=== PATIENT | male | born 1985 | race Caucasian/White ===

== ENCOUNTER 2020-03-25 14:34 | Emergency (ER) | payer SELFPAY ==
[~2020-03-25] VITALS: Ht 175.3 cm; Wt 66.0 kg
[~2020-03-25 14:34] MED LIST: LORA1TAB PO; SERT50TA PO
[2020-03-25 16:35] VITALS: BP 138/85
[2020-03-25] MEDS ORDERED: MUPIROCIN 2 % TOPICAL CREAM 30GM TUBE. TP ONE (17:15)
[2020-03-25] MEDS ORDERED: KETOROLAC 30 MG/ML VIAL. IM ONE (17:15)
[2020-03-25] MEDS ORDERED: oxyCODONE/APAP 5/325 1 TAB TABLET PO ONE (17:15)
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
[2020-03-25] MEDS ORDERED: OXYC1TAB15 PO (18:08)
[2020-03-25] MEDS ORDERED: MUPI22OI2 TP (18:08)
== END 2020-03-25 18:31 | disposition home or self-care (01) ==
LOC: ER 14:34
DX: S61.432A Puncture wound without foreign body of left hand, initial encounter (principal); R20.2 Paresthesia of skin; F41.9 Anxiety disorder, unspecified; F17.200 Nicotine dependence, unspecified, uncomplicated; Y29.XXXA Contact with blunt object, undetermined intent, initial encounter; Y93.89 Activity, other specified; Y92.89 Other specified places as the place of occurrence of the external cause; Y99.8 Other external cause status
CPT/HCPCS: 73130; 96372; 99283; J1885

== ENCOUNTER 2021-01-21 08:30 | Emergency (ER) | payer OTHER ==
[~2021-01-21] VITALS: Ht 172.7 cm; Wt 70.0 kg
[~2021-01-21 08:30] MED LIST changes: +MUPI22OI2 TP; +OXYC1TAB15 PO
[2021-01-21] MEDS ORDERED: IV NORMAL SALINE 1000ML BAG 1,000 ML IV ONE (09:00)
[2021-01-21 09:35] LABS: BASO # 0.1 x10^3/uL (0.0-0.2); BASO % 1 % (0-3); EOS # 0.1 x10^3/uL (0.0-0.7); EOS % 1 % (0-3); HEMATOCRIT 44.4 % (39.0-53.0); HEMOGLOBIN 15.5 g/dL (13.0-17.5); LYMPH # 1.1 x10^3/uL (1.0-4.8); LYMPH % 6 % (24-48); MEAN CORPUSCULAR HEMOGLOBIN 30 pg (25-35); MEAN CORPUSCULAR HGB CONC 35 g/dL (31-37); MEAN CORPUSCULAR VOLUME 85 fL (79-100); MONO # 0.8 x10^3/uL (0.0-1.1); MONO % 5 % (0-9); NEUT # 14.9 x10^3/uL (1.8-7.7); NEUT % 88 % (31-73); PLATELET COUNT 291 x10^3/uL (140-400); RED CELL DISTRIBUTION WIDTH 13.7 % (11.5-14.5)
[2021-01-21 09:45] LABS: CALCIUM 8.7 mg/dL (8.5-10.1); CREATININE 1.1 mg/dL (0.7-1.3); GFR 76.2; POTASSIUM 3.6 mmol/L (3.5-5.1)
[2021-01-21 09:51] LABS: ALBUMIN 3.7 g/dL (3.4-5.0); ALBUMIN/GLOBULIN RATIO 1.1 (1.0-1.7); MAGNESIUM 2.3 mg/dL (1.8-2.4); TOTAL BILIRUBIN 0.4 mg/dL (0.2-1.0)
--- NOTE | 2021-01-21 10:50 | RAD ---
EXAMINATION: CT HEAD/BRAIN WO CLINICAL HISTORY: Seizure-like activity TECHNIQUE: Serial axial images without IV contrast were obtained from the vertex to the foramen magnu m. CT Dose Reduction Employed: One or more of the following individualized dose reduction techniques sammy e utilized for this examination: 1. Automated exposure control 2. Adjustment of the mA and/or kV ac cording to patient size 3. Use of iterative reconstruction technique. COMPARISON: None FINDINGS: Acute Change: No evidence of acute intracranial abnormality. Hemorrhage: No evidence of acute intracranial hemorrhage. Mass Lesion/Mass Effect: No evidence of intracranial mass or extraaxial fluid collection. No signific ant mass effect. Parenchyma: Parenchyma within normal limits for age. Ventricles: Ventricles within normal limits for age. Paranasal Sinuses and Skull Base: Visualized paranasal sinuses clear. Visualized skull base and soft tissues unremarkable. IMPRESSION: No evidence of acute intracranial abnormality. Electronically signed by: Gio Bustamante DO (01/21/2021 10:47 AM) [facility]
[2021-01-21 11:16] LABS: % BANDS 4 % (0-9); % BASOS 1 % (0-3); % LYMPHS 10 % (24-48); % MONOS 4 % (0-10); % SEGS 81 % (35-66)
[2021-01-21 11:17] LABS: PLT ESTIMATE ADEQUATE (ADEQUATE)
--- NOTE | 2021-01-21 11:57 | PHYS DOC ---
Past Medical History Past Medical History: Anxiety Past Surgical History: No Surgical History Smoking Status: Current Every Day Smoker Alcohol Use: None Drug Use: None General Adult EDM: Chief Complaint: SEIZURE HPI: HPI: 35-year-old male presents via EMS with report of episode in which patient passed out and subsequently had seizure-like activity. Patient denies history of seizures. EMS does report patient was slightly confused and kept repeating questioning but then subsequently became A&O x4. Patient does report feeling drowsy. Patient denies head trauma or neck pain. Patient reports he has not been drinking water like he is supposed to and is concerned he might have been dehydrated. Patient was welding at time of episode. Review of Systems: Review of Systems: Constitutional: Denies fever or chills Eyes: Denies redness or eye pain HENT: Denies nasal congestion or sore throat Respiratory: Denies cough or shortness of breath Cardiovascular: Denies chest pain or palpitations GI: Denies abdominal pain, nausea, or vomiting : Denies dysuria or hematuria Musculoskeletal: Denies back pain or joint pain Integument: Denies rash or skin lesions Neurologic: Denies headache, focal weakness or sensory changes; reports syncopal episode with subsequent seizure-like activity Complete systems were reviewed and found to be within normal limits, except as documented in this note. Heart Score: C/O Chest Pain: N/A Current Medications: Current Medications Medications (Trade) Dose Ordered Sig/Sandra Start Time Stop Time Status Last Admin Dose Admin Sodium Chloride 1,000 ml @ 1,000 mls/hr 1X ONCE 01/21/21 09:00 01/21/21 09:59 DC 01/21/21 09:00 1,000 MLS/HR Allergies: Allergies: Allergies Coded Allergies Type Severity Reaction Last Updated Verified No Known Drug Allergies 01/21/21 No Physical Exam: PE: Constitutional: Well developed, well nourished, no acute distress, non-toxic appearance HENT: Normocephalic, atraumatic Eyes: PERRL, EOMI, conjunctiva normal, no discharge, no nystagmus Neck: Normal range of motion, no midline tenderness, supple Lungs & Thorax: No respiratory distress, equal chest rise and fall Abdomen: Soft, no tenderness Skin: Warm, dry, no erythema, no rash Extremities: No tenderness, ROM intact, no edema Neurologic: Alert and oriented X 3, normal motor function, normal sensory function, no focal deficits noted Psychologic: Affect normal, judgment normal Current Patient Data: Labs: Laboratory Tests Test 01/21/21 09:30 01/21/21 10:00 White Blood Count 17.0 x10^3/uL (4.0-11.0) H Red Blood Count 5.20 x10^6/uL (4.30-5.70) Hemoglobin 15.5 g/dL (13.0-17.5) Hematocrit 44.4 % (39.0-53.0) Mean Corpuscular Volume 85 fL (79-100) Mean Corpuscular Hemoglobin 30 pg (25-35) Mean Corpuscular Hemoglobin Concent 35 g/dL (31-37) Red Cell Distribution Width 13.7 % (11.5-14.5) Platelet Count 291 x10^3/uL (140-400) Neutrophils (%) (Auto) 88 % (31-73) H Lymphocytes (%) (Auto) 6 % (24-48) L Monocytes (%) (Auto) 5 % (0-9) Eosinophils (%) (Auto) 1 % (0-3) Basophils (%) (Auto) 1 % (0-3) Neutrophils # (Auto) 14.9 x10^3/uL (1.8-7.7) H Lymphocytes # (Auto) 1.1 x10^3/uL (1.0-4.8) Monocytes # (Auto) 0.8 x10^3/uL (0.0-1.1) Eosinophils # (Auto) 0.1 x10^3/uL (0.0-0.7) Basophils # (Auto) 0.1 x10^3/uL (0.0-0.2) Segmented Neutrophils % 81 % (35-66) H Band Neutrophils % 4 % (0-9) Lymphocytes % 10 % (24-48) L Monocytes % 4 % (0-10) Basophils % 1 % (0-3) Platelet Estimate Adequate (ADEQUATE) Sodium Level 137 mmol/L (136-145) Potassium Level 3.6 mmol/L (3.5-5.1) Chloride Level 100 mmol/L (98-107) Carbon Dioxide Level 27 mmol/L (21-32) Anion Gap 10 (6-14) Blood Urea Nitrogen 9 mg/dL (8-26) Creatinine 1.1 mg/dL (0.7-1.3) Estimated GFR (Cockcroft-Gault) 76.2 BUN/Creatinine Ratio 8 (6-20) Glucose Level 126 mg/dL (70-99) H Calcium Level 8.7 mg/dL (8.5-10.1) Magnesium Level 2.3 mg/dL (1.8-2.4) Total Bilirubin 0.4 mg/dL (0.2-1.0) Aspartate Amino Transferase (AST) 15 U/L (15-37) Alanine Aminotransferase (ALT) 24 U/L (16-63) Alkaline Phosphatase 82 U/L (46-116) Creatine Kinase 99 U/L (39-308) Total Protein 7.0 g/dL (6.4-8.2) Albumin 3.7 g/dL (3.4-5.0) Albumin/Globulin Ratio 1.1 (1.0-1.7) Lactic Acid Level 1.5 mmol/L (0.4-2.0) Laboratory Tests 01/21/21 09:30 Laboratory Tests 01/21/21 09:30 Vital Signs: Vital Signs Date Time Temp Pulse Resp B/P (MAP) Pulse Ox O2 Delivery O2 Flow Rate FiO2 01/21/21 10:12 77 16 98 01/21/21 08:40 98.1 116/57 (76) Room Air 98.1 EKG: EKG: @0857 NSR at 67bpm, NO ST elevation, QRS 104ms, QT/QTc 442/470ms, q wave II-III and aVF Radiology/Procedures: Radiology/Procedures: PROCEDURE: CT HEAD WO CONTRAST EXAMINATION: CT HEAD/BRAIN WO CLINICAL HISTORY: Seizure-like activity TECHNIQUE: Serial axial images without IV contrast were obtained from the vertex to the foramen magnum. CT Dose Reduction Employed: One or more of the following individualized dose reduction techniques were utilized for this examination: 1. Automated exposure control 2. Adjustment of the mA and/or kV according to patient size 3. Use of iterative reconstruction technique. COMPARISON: None FINDINGS: Acute Change: No evidence of acute intracranial abnormality. Hemorrhage: No evidence of acute intracranial hemorrhage. Mass Lesion/Mass Effect: No evidence of intracranial mass or extraaxial fluid collection. No significant mass effect. Parenchyma: Parenchyma within normal limits for age. Ventricles: Ventricles within normal limits for age. Paranasal Sinuses and Skull Base: Visualized paranasal sinuses clear. Visualized skull base and soft tissues unremarkable. IMPRESSION: No evidence of acute intracranial abnormality. Electronically signed by: Gio Bustamante DO (01/21/2021 10:47 AM) [facility] Course & Med Decision Making: Course & Med Decision Making Pertinent Labs and Imaging studies reviewed. (See chart for details) Patient presents with report of syncopal episode with seizure-like activity. Upon arrival to the ER patient neurologically intact. CT head without acute finding. Labs obtained and posted to chart. WBC, lactic acid, and CPK all within normal limits. Troponin within normal limits. EKG stable. IV fluid hydration provided. Patient stable for discharge with outpatient follow-up with PCP/neurology. Neurology referral provided. Discussed findings and plan with patient, who acknowledges understanding and agreement. Dragon Disclaimer: Dragon Disclaimer: This electronic medical record was generated, in whole or in part, using a voice recognition dictation system. Departure Departure Impression: Primary Impression: Witnessed seizure-like activity Disposition: 01 HOME / SELF CARE / HOMELESS Condition: STABLE Referrals: NO PCP (PCP) SREEKANTH CHAVIS MD Patient Instructions: Seizure, Adult, [id number], Syncope, [id number] Additional Instructions: There is concern you might have had a seizure. Sometimes patient can actually have syncopal episodes and have some twitching associated after they pass out. It is unclear whether this is truly a seizure disorder or if you just had a sync opal episode. Make sure to increase your fluid hydration. Because we cannot fully exclude a seizure disorder please refrain from driving. You must be cleared by a neurologist or be seizure-free for 6 months prior to getting behind a wheel. CAMELIA DAVEY DO Jan 21, 2021 11:57
[2021-01-21 11:59] VITALS: BP 137/52
--- NOTE | 2021-01-21 17:27 | EKG ---
[facility] [address] [place] [address] Test Date: 2021-01-21 Test Time: 08:57:12 Pat Name: MIRELA BRADEN Department: Room: Gender: M Buffing Machine Operator: : [id number] Requested By: CAMELIA DAVEY Order Number: [id number] Reading MD: Eddi Cartwright MD Measurements Intervals Reva Rate: 67 P: 66 WI: 138 QRS: 84 QRSD: 104 T: 69 QT: 442 QTc: 470 Interpretive Statements SINUS RHYTHM Electronically Signed On 01-24-2021 11:39:26 CDT by Eddi Cartwright MD
== END 2021-01-21 12:14 | disposition home or self-care (01) ==
LOC: ER 08:30
DX: R56.9 Unspecified convulsions (principal); F17.200 Nicotine dependence, unspecified, uncomplicated; F41.9 Anxiety disorder, unspecified
CPT/HCPCS: 36415; 70450; 80053; 82550; 83605; 83735; 85007; 85025; 93005; 96360; 96361; 99285; J7030

== ENCOUNTER 2021-02-21 11:54 | Emergency (ER) | payer OTHER ==
[~2021-02-21] VITALS: Ht 170.2 cm; Wt 67.2 kg
[2021-02-21 12:12] VITALS: BP 132/86
[2021-02-21] MEDS ORDERED: DEXAMETHASONE SOD PHOS 4 MG/ML VIAL PO ONE (14:15)
--- NOTE | 2021-02-21 14:40 | RAD ---
EXAM: Chest, single view. HISTORY: Shortness of breath. COMPARISON: None. FINDINGS: A frontal view of the chest is obtained. There is no infiltrate, pleural effusion or pneumo thorax. The heart is normal in size. IMPRESSION: No acute pulmonary finding. Electronically signed by: Estephania Poon MD (02/21/2021 2:38 PM) [id number]
--- NOTE | 2021-02-21 14:51 | PHYS DOC ---
Past Medical History Past Medical History: Anxiety Past Surgical History: No Surgical History Smoking Status: Unknown if ever smoked Alcohol Use: Occasionally Drug Use: None General Adult EDM: Chief Complaint: COUGH HPI: HPI: Patient is a 35 year old male who presents with nonproductive cough and shortness of breath. Patient states that he was diagnosed with Covid last Sunday. Denies at home medications to treat symptoms. Patient reports that he was infected at work along with 30 other employees. Denies nausea/vomiting/diarrhea, fever. Patient has not been vaccinated for COVID-19. Denies all medical history and daily meds. Review of Systems: Review of Systems: Constitutional: Denies fever or chills. [] Eyes: Denies change in visual acuity. [] HENT: Denies nasal congestion or sore throat. [] Respiratory: Denies cough or shortness of breath. [] Cardiovascular: Denies chest pain or edema. [] GI: Denies abdominal pain, nausea, vomiting, bloody stools or diarrhea. [] : Denies dysuria. [] Musculoskeletal: Denies back pain or joint pain. [] Integument: Denies rash. [] Neurologic: Denies headache, focal weakness or sensory changes. [] Endocrine: Denies polyuria or polydipsia. [] Lymphatic: Denies swollen glands. [] Psychiatric: Denies depression or anxiety. [] Heart Score: C/O Chest Pain: No Risk Factors: Risk Factors: DM, Current or recent (<one month) smoker, HTN, HLP, family history of CAD, obesity. Risk Scores: Score 0 - 3: 2.5% MACE over next 6 weeks - Discharge Home Score 4 - 6: 20.3% MACE over next 6 weeks - Admit for Clinical Observation Score 7 - 10: 72.7% MACE over next 6 weeks - Early Invasive Strategies Current Medications: Current Medications Medications (Trade) Dose Ordered Sig/Sandra Start Time Stop Time Status Last Admin Dose Admin Dexamethasone Sodium Phosphate (Decadron) 10 mg 1X ONCE 02/21/21 14:15 02/21/21 14:24 DC Allergies: Allergies: Allergies Coded Allergies Type Severity Reaction Last Updated Verified No Known Drug Allergies 01/21/21 No Physical Exam: PE: Constitutional: Well developed, well nourished, no acute distress, non-toxic appearance. [] HENT: Normocephalic, atraumatic, bilateral external ears normal, oropharynx moist, no oral exudates, nose normal. [] Eyes: PERRLA, EOMI, conjunctiva normal, no discharge. [] Neck: Normal range of motion, no tenderness, supple, no stridor. [] Cardiovascular:Heart rate regular rhythm, no murmur [] Lungs & Thorax: Bilateral breath sounds clear to auscultation [] Abdomen: Bowel sounds normal, soft, no tenderness, no masses, no pulsatile masses. [] Skin: Warm, dry, no erythema, no rash. [] Back: No tenderness, no CVA tenderness. [] Extremities: No tenderness, no cyanosis, no clubbing, ROM intact, no edema. [] Neurologic: Alert and oriented X 3, normal motor function, normal sensory function, no focal deficits noted. [] Psychologic: Affect normal, judgement normal, mood normal. [] Current Patient Data: Vital Signs: Vital Signs Date Time Temp Pulse Resp B/P (MAP) Pulse Ox O2 Delivery O2 Flow Rate FiO2 02/21/21 12:12 98.3 79 14 132/86 (101) 98 Room Air 98.3 EKG: EKG: Sinus rhythm. Heart rate 73. No STEMI. Read by Dr. Vogt. [] Radiology/Procedures: Radiology/Procedures: []EXAM: Chest, single view. HISTORY: Shortness of breath. COMPARISON: None. FINDINGS: A frontal view of the chest is obtained. There is no infiltrate, pleural effusion or pneumothorax. The heart is normal in size. IMPRESSION: No acute pulmonary finding. Electronically signed by: Estephania Poon MD (02/21/2021 2:38 PM) [id number] Course & Med Decision Making: Course & Med Decision Making Pertinent Labs and Imaging studies reviewed. (See chart for details) [] Nontoxic, appearing 35-year-old male presents with nonproductive cough and shortness of breath. Patient was diagnosed with Covid last week. Patient is alert and oriented and hemodynamically stable. Afebrile. Patient was given dexamethasone in the ER. Chest x-ray ordered. EKG obtained. Discussed results with patient. Advised patient to start taking [id number] medications to help with symptoms such at home. Discussed in length return precautions. Motrin and Tylenol for pain or fever. Increase f luids. Patient verbalizes he understands discharge instructions and return precautions. Patient is hemodynamically stable upon disposition. Dragon Disclaimer: Dragon Disclaimer: This electronic medical record was generated, in whole or in part, using a voice recognition dictation system. Departure Departure Impression: Primary Impression: Cough Additional Impression: COVID Disposition: HOME / SELF CARE / HOMELESS Condition: STABLE Referrals: NO PCP (PCP) Patient Instructions: Cough, Adult, [id number] Additional Instructions: Were seen in the emergency room for a cough and shortness of breath after being diagnosed with Covid. Your chest x-ray was unremarkable. You were given steroids in the ER. Make sure that you are taking Motrin and Tylenol at home for fever and pain. Increase your fluids. You can take ccny-xpl-elpoief Mucinex DM to help with symptoms. If your shortness of breath increases or you have worsening symptoms, please return to the emergency room. Otherwise please follow-up with your PCP in the next 2 to 3 days. EMERGENCY DEPARTMENT GENERAL DISCHARGE INSTRUCTIONS Thank you for coming to [facility] Emergency Department (ED) today and trusting us with you care. We trust that you had a positive experience in our Emergency Department. If you wish to speak to the department management, you may call the Director at [phone]. YOUR FOLLOW UP INSTRUCTIONS ARE FOLLOWS: 1. Do you have a private Doctor? If you do not have a private doctor, please ask for a resource list of physicians or clinics that may be able to assist you with follow up care. 2. The Emergency Physicain has interpreted your x-rays. The X-Ray specialist will also review them. If there is a change in the findings, you will be notified in 48 hours when at all possible. 3. A lab test or culture has been done, your results will be reviewed and you will be notified if you need a change in treatment. ADDITIONAL INSTRUCTIONS AND INFORMATION: 1. Your care today has been supervised by a physician who is specially trained in emergency care. Many problems require more than one evaluation for a complete diagnosis and treatment. We recommend that you schedule your follow up appointment as recommended to ensure complete treatment of you illness or injury. If you are unable to obtain follow up care and continue to have a problem, or if your condition worsens, we recommend that you return to the ED. 2. We are not able to safely determine your condition over the phone nor are we able to give sound medical advice over the phone. For these safety reasons, if you call for medical advice we will ask you to come to the ED for further evaluation. 3. If you have any questions regarding these discharge instructions please call the ED at [phone]. SAFETY INFORMATION: In the interest of safety, wellness, and injury prevention; we encourage you to wear your sealbelt, if you smoke; quite smoking, and we encourage family to use a protective helmet for bicycling and other sporting events that present an increased risk for head injury. IF YOUR SYMPTOMS WORSEN OR NEW SYMPTOMS DEVELOP, OR YOU HAVE CONCERNS ABOUT YOUR CONDITION; OR IF YOUR CONDITION WORSENS WHILE YOU ARE WAITING FOR YOUR FOLLOW UP APPOINTMENT; EITHER CONTACT YOUR PRIMARY CARE DOCTOR, THE PHYSICIAN WHOSE NAME AND NUMBER YOU WERE GIVEN, OR RETURN TO THE ED IMMEDIATELY. You have been tested for or diagnosed with COVID-19. It is an infection caused by a new type of coronavirus. COVID-19 will cause cold-like or mild flu symptoms in most. It can cause more severe symptoms like problems breathing in some. There is no treatment for COVID-19. The body will clear the infection over time. Self-care will help to ease discomfort. Steps to Take: Self-Care Rest as needed. Healthy habits may help you feel better. Steps include: Choose healthy foods including fruits and vegetables. Drink water throughout the day. Get plenty of sleep each night. If you smoke, try to quit. It may ease breathing. Avoid alcohol. Keep Others Healthy The virus can spread to others. Droplets are released every time you sneeze or cough. The droplets can get into the mouth, nose, or eyes of people near you and lead to infection. To lower the chances of spreading COVID-19 to others: Stay at home until your doctor has said it is safe to leave. If you tested positive this will mean staying isolated until both of the following are true: At least 7 days have passed since the start of illness. You are free of fever for at least 72 hours without the use of medicine. During this time: - Avoid public areas, events, or transportation. Do not return to work or school until your doctor has said it is safe to do so. - Call ahead if you need to go to a medical center. Let them know you may have COVID-19. It will help them guide you where to go. They may also ask you to wear a facemask when you come to the office. - If you call for emergency medical services, let them know you may have COVID- 19. While at home: - Try to avoid close contact with others. Stay about 6 feet away. - If possible, spend most of your time in a separate room from others. - Use a face mask if you will be in close contact with others such as sharing a room or vehicle. - Have someone wipe down common surfaces in the home. Use household fabric and accessories estimator every day on areas like doorknobs, counters, or sinks. - Cough or sneeze into a tissue. Throw the tissue away right after use. If a tissue is not available, cough or sneeze into your elbow. - Wash your hands often. Wash them after sneezing or coughing. Use soap and w ater and wash for at least 20 seconds. Alcohol based hand building cleaner can be used if soap and water is not available. - Do not prepare food for others. Avoid sharing personal items like forks, spoons, or toothbrushes. - Avoid close contact with pets while you are sick. There is no evidence of the virus passing to pets. This is a safety step until more is known about this virus. Isolation can be frustrating. Social interaction can help. Keep in touch with friends and family through phone and tech options. You can still interact with others in your home, just keep a safe distance of about 6 feet. Follow-up: Your doctors office will check in with you to see if there are any changes in your health. You may be asked to keep track of symptoms to share with them. They will also let you know when you are clear to be in public again. Problems to Look Out For: Contact your doctor if your recovery is not going as you expect. Get emergency care if you have problems such as: - Trouble breathing - Nonstop chest pain or pressure - Changes in awareness, confusion, or problems waking - Lips or face have bluish color - Worsening of symptoms If you think you have an emergency, call for emergency medical services right away. As taken from [facility] JUAN R HELM MARIANO Feb 21, 2021 14:51
--- NOTE | 2021-02-21 16:16 | EKG ---
[facility] [address] [place] [address] Test Date: 2021-02-21 Test Time: 14:37:09 Pat Name: MIRELA BRADEN Department: Room: Gender: M Corporate Relations Director: : 1985 Requested By: JUAN R HELM Order Number: [id number] Reading MD: Ricky Mauricio Measurements Intervals [place] Rate: 73 P: 49 VT: 122 QRS: 76 QRSD: 88 T: 62 QT: 356 QTc: 396 Interpretive Statements SINUS RHYTHM Electronically Signed On 02-22-2021 14:22:34 KILN [employer] HOUSE OPERATOR by Ricky Mauricio
== END 2021-02-21 15:13 | disposition home or self-care (01) ==
LOC: ER 11:54
DX: U07.1 COVID-19 (principal); R05.9 Cough, unspecified
CPT/HCPCS: 71045; 93005; 99283; J1100

== ENCOUNTER 2021-06-17 14:40 | Emergency (ER) | payer SELFPAY ==
[~2021-06-17] VITALS: Ht 175.3 cm; Wt 63.6 kg
--- NOTE | 2021-06-17 15:16 | PHYS DOC ---
Past Medical History Past Medical History: Anxiety (JOSEF GREEN APRN) Past Surgical History: No Surgical History (JOSEF GREEN APRN) Smoking Status: Unknown if ever smoked Alcohol Use: Occasionally Drug Use: None (JOSEF GREEN APRN) General Adult EDM: Chief Complaint: SHOULDER INJURY HPI: HPI: Patient is a 36 year old male who presents with states he awoke this morning with left shoulder pain. He states he cannot raise it outward but cannot laterally raise of the joint. Rates his pain a 10 out of 10. He denies any numbness or tingling. States that he does not remember injuring the shoulder but had been lifting some boxes at work the day before. Did not take any medication prior to coming. (JOSEF GREEN APRN) Review of Systems: Review of Systems: Constitutional: Denies fever or chills. [] Eyes: Denies change in visual acuity. [] HENT: Denies nasal congestion or sore throat. [] Respiratory: Denies cough or shortness of breath. [] Cardiovascular: Denies chest pain or edema. [] GI: Denies abdominal pain, nausea, vomiting, bloody stools or diarrhea. [] : Denies dysuria. [] Musculoskeletal: Denies back pain or + left shoulder joint pain. [] Integument: Denies rash. [] Neurologic: Denies headache, focal weakness or sensory changes. [] Endocrine: Denies polyuria or polydipsia. [] Lymphatic: Denies swollen glands. [] Psychiatric: Denies depression or anxiety. [] (JOSEF GREEN APRN) Heart Score: C/O Chest Pain: No (JOSEF GREEN APRN) Current Medications: Current Medications Medications (Trade) Dose Ordered Sig/Sandra Start Time Stop Time Status Last Admin Dose Admin Acetaminophen/ Hydrocodone Bitart (Lortab 5/325) 1 tab 1X ONCE 06/17/21 15:45 06/17/21 15:46 Cyclobenzaprine HCl (Flexeril) 10 mg 1X ONCE 06/17/21 15:45 06/17/21 15:46 (JOSEF GREEN CONCEPT ARTIST) Allergies: Allergies: Allergies Coded Allergies Type Severity Reaction Last Updated Verified No Known Drug Allergies 01/21/21 No (JOSEF GREEN APRN) Physical Exam: PE: Constitutional: Well developed, well nourished, no acute distress, non-toxic appearance. [] HENT: Normocephalic, atraumatic, bilateral external ears normal, oropharynx moist, no oral exudates, nose normal. [] Eyes: PERRLA, EOMI, conjunctiva normal, no discharge. [] Neck: Normal range of motion, no tenderness, supple, no stridor. [] Cardiovascular:Heart rate regular rhythm, no murmur [] Lungs & Thorax: Bilateral breath sounds clear to auscultation [] Abdomen: Bowel sounds normal, soft, no tenderness, no masses, no pulsatile masses. [] Skin: Warm, dry, no erythema, no rash. [] Back: No tenderness, no CVA tenderness. [] Extremities: No tenderness, no cyanosis, no clubbing, left shoulder ROM not intact laterally, no edema. Left shoulder deformity [] Neurologic: Alert and oriented X 3, normal motor function, normal sensory function, no focal deficits noted. [] Psychologic: Affect normal, judgement normal, mood normal. [] (JOSEF GREEN APRN) Current Patient Data: Vital Signs: Vital Signs Date Time Temp Pulse Resp B/P (MAP) Pulse Ox O2 Delivery O2 Flow Rate FiO2 06/17/21 15:03 97.4 98 18 128/80 (96) 100 Room Air 97.4 (JOSEF GREEN APRN) EKG: EKG: [] (JOSEF GREEN APRN) Radiology/Procedures: Radiology/Procedures: [] Impression: [facility] [address] [place], [place] [id number] IMAGING REPORT Signed PATIENT: MIRELA BRADEN ACCOUNT: [id number] : 1985 LOCATION: ER AGE: 36 SEX: M EXAM STATUS: REG ER ORD. PHYSICIAN: JOSEF GREEN APRN REASON: pain, unable to move at joint PROCEDURE: SHOULDER 2+V LEFT EXAM: XR SHOULDER_LEFT 2+ VIEWS 06/17/2021 3:26 PM CLINICAL INDICATION: Pain, unable to move shoulder COMPARISON: Chest radiograph 02/21/2021 TECHNIQUE: 2 views of the left shoulder FINDINGS: The humeral head is dislocated anteriorly relative to the glenoid. There is no definite fracture. Acromioclavicular joint is normal. Probable bone island in the glenoid. IMPRESSION: Anterior glenohumeral dislocation. Electronically signed by: Velia Mills MD (06/17/2021 4:31 PM) [id number] DICTATED and SIGNED BY: VELIA MILLS MD DATE: 06/17/21 [id number] [facility] [address] [place] [address] IMAGING REPORT Signed PATIENT: MIRELA BRADEN ACCOUNT: [id number] : 1985 LOCATION: ER AGE: 36 SEX: M EXAM STATUS: REG ER ORD. PHYSICIAN: ONEAL STOCKTON MD REASON: post reduction PROCEDURE: SHOULDER 2+V LEFT EXAM: 2 Views Left Shoulder DATE: 06/17/2021 4:57 PM INDICATION: post reduction COMPARISON: No Prior FINDINGS: There is no evidence for acute fracture or dislocation. Lucency greater tuberosity. AC joint is congruent. Humeral head is not high riding. IMPRESSION: 1. Interval reduction of the left shoulder. Lucency greater tuberosity likely Hill-Sachs deformity. No obvious glenoid fracture although may be occult on the limited submitted projections. Electronically signed by: Farhad Albert MD (06/17/2021 5:15 PM) [facility] DICTATED and SIGNED BY: FARHAD ALBERT MD DATE: 06/17/21 [id number] (JOSEF GREEN APRN) Course & Med Decision Making: Course & Med Decision Making Pertinent Labs and Imaging studies reviewed. (See chart for details) See HPI. Alert and oriented x4. Ambulatory steady gait. Skin pink warm dry. Radial pulse strong present. No extremity edema or joint edema. Does seem to have some deformity at the left shoulder joint. Cannot raise the arm laterally at the joint. He can wiggle his fingers. X-ray shows shoulder is out of place. Dr. Duron is doing conscious sedation and putting shoulder back into place. Shoulder immobilizer placed. [] (JOSEF GREEN APRN) Course & Med Decision Making Procedure note for shoulder reduction: Patient was given 10 mg of etomidate IV push after assessing his airway and conscious sedation risk. The left shoulder was reduced using a combination of traction and external rotation. We could feel this pop into place and postreduction x-rays confirm good reduction. Patient was placed in a shoulder immobilizer, he is in stable condition at this time. No complications. (ONEAL STOCKTON MD) Dragon Disclaimer: Dragon Disclaimer: This electronic medical record was generated, in whole or in part, using a voice recognition dictation system. (JOSEF GREEN APRN) Departure Departure Impression: Primary Impression: Shoulder dislocation Qualified Codes: S43.005A - Unspecified dislocation of left shoulder joint, initial encounter Disposition: HOME / SELF CARE / HOMELESS Condition: STABLE Referrals: NO PCP (PCP) MIRELA GARCIA MD Patient Instructions: Shoulder Dislocation, Shoulder Immobilizer Additional Instructions: Follow-up with orthopedic I have referred you to. Leave the shoulder immobilizer on until you follow-up. Take medication as prescribed and with food. Remember some of these medications can make you sleepy, do not drive or drink alcohol or go to work on these medications. Scripts Hydrocodone/Acetaminophen (Hydrocodone-Acetamin 5-325 mg) 1 Each Tablet 1 EACH PO Q6HRS PRN for PAIN, #10 TAB Prov: JOSEF GREEN APRN 06/17/21 Ibuprofen (IBUPROFEN) 600 Mg Tablet 600 MG PO PRN Q6HRS PRN for INFLAMMATION, #30 TAB Prov: JOSEF GREEN APRN 06/17/21 Cyclobenzaprine Hcl (CYCLOBENZAPRINE HCL) 10 Mg Tablet 1 TAB PO TID, #10 TAB Prov: JOSEF GREEN APRN 06/17/21 JOSEF GREEN APRN Jun 17, 2021 15:16 ONEAL STOCKTON MD Jun 17, 2021 17:25
[2021-06-17] MEDS ORDERED: CYCLOBENZAPRINE 10 MG TABLET. PO ONE (15:45)
[2021-06-17] MEDS ORDERED: HYDROcodone/APAP 5/325MG 1 TAB TABLET PO ONE (15:45)
--- NOTE | 2021-06-17 16:33 | RAD ---
EXAM: XR SHOULDER_LEFT 2+ VIEWS 06/17/2021 3:26 PM CLINICAL INDICATION: Pain, unable to move shoulder COMPARISON: Chest radiograph 02/21/2021 TECHNIQUE: 2 views of the left shoulder FINDINGS: The humeral head is dislocated anteriorly relative to the glenoid. There is no definite fr acture. Acromioclavicular joint is normal. Probable bone island in the glenoid. IMPRESSION: Anterior glenohumeral dislocation. Electronically signed by: Velia Mills MD (06/17/2021 4:31 PM) [id number]
[2021-06-17 16:40] VITALS: BP 133/84
[2021-06-17] MEDS ORDERED: ETOMIDATE 20 MG/10 ML VIAL. IV ONE (16:45)
[2021-06-17] MEDS ORDERED: HYDR-2759 PO (16:57)
[2021-06-17] MEDS ORDERED: IBUP-1007 PO (16:57)
[2021-06-17] MEDS ORDERED: CYCL10TA19 PO (16:57)
--- NOTE | 2021-06-17 17:17 | RAD ---
EXAM: 2 Views Left Shoulder DATE: 06/17/2021 4:57 PM INDICATION: post reduction COMPARISON: No Prior FINDINGS: There is no evidence for acute fracture or dislocation. Lucency greater tuberosity. AC joint is congr uent. Humeral head is not high riding. IMPRESSION: 1. Interval reduction of the left shoulder. Lucency greater tuberosity likely Hill-Sachs deformity. No obvious glenoid fracture although may be occult on the limited submitted projections. Electronically signed by: Farhad Dubois MD (06/17/2021 5:15 PM) IDALIA
== END 2021-06-17 17:40 | disposition home or self-care (01) ==
LOC: ER 14:40
DX: S43.005A Unspecified dislocation of left shoulder joint, initial encounter (principal); X50.0XXA Overexertion from strenuous movement or load, initial encounter; Y93.89 Activity, other specified; Y92.69 Other specified industrial and construction area as the place of occurrence of the external cause; Y99.0 Civilian activity done for income or pay
CPT/HCPCS: 23650; 73030; 99285; J3490

== ENCOUNTER 2021-07-30 00:28 | Emergency (ER) | payer BC ==
[~2021-07-30] VITALS: Ht 175.3 cm; Wt 65.0 kg
[~2021-07-30 00:28] MED LIST changes: +CYCL10TA19 PO; +HYDR-2759 PO; +IBUP-1007 PO
[2021-07-30] MEDS ORDERED: fentaNYL PF VIAL 100 MCG/2 ML VIAL IVP ONE ×2 (01:30→03:00)
--- NOTE | 2021-07-30 01:33 | RAD ---
Left shoulder x-rays 2 views HISTORY: Left shoulder deformity. COMPARISON: Shoulder x-rays June 18, 2019 FINDINGS: The AP view is obliqued somewhat limiting assessment of alignment as well as overlapping of the structures which may decrease sensitivity to detect a nondisplaced subtle fracture. There is an apparent anterior humeral head dislocation. No fracture evident. No distraction of the acromioclavicu lar joint. IMPRESSION: Anterior humeral head dislocation. Electronically signed by: Vinod Pace MD (07/30/2021 1:30 AM) [facility]
[2021-07-30] MEDS ORDERED: PROPOFOL 10 MG/ML (20ML) VIAL. IV ONE (02:00)
[2021-07-30 02:27] VITALS: BP 152/89
--- NOTE | 2021-07-30 03:13 | RAD ---
Left shoulder AP scapular x-rays 2 views COMPARISON: Left shoulder x-rays July 31, 2019 FINDINGS: No fracture. No dislocation. No arthritic change. No bone lesion. Soft tissues are unremark able. IMPRESSION: Normal exam. Electronically signed by: Vinod Pace MD (07/30/2021 3:11 AM) [facility]
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
[2021-07-30 03:50] VITALS: BP 101/64
== END 2021-07-30 03:46 | disposition home or self-care (01) ==
LOC: ER 00:28
DX: S43.005A Unspecified dislocation of left shoulder joint, initial encounter (principal); S00.83XA Contusion of other part of head, initial encounter; F17.200 Nicotine dependence, unspecified, uncomplicated; X58.XXXA Exposure to other specified factors, initial encounter; Y93.89 Activity, other specified; Y92.89 Other specified places as the place of occurrence of the external cause; Y99.8 Other external cause status
CPT/HCPCS: 23650; 73030; 96374; 96376; 99151; 99285; J3010